=== PATIENT | female | born 1935 | race Asian ===

== ENCOUNTER 2016-08-13 19:12 | Emergency (ER) | payer MEDICARE, OTHER ==
[~2016-08-13] VITALS: Ht 157.5 cm; Wt 61.4 kg
[2016-08-13] MEDS ORDERED: ASCO500 PO (19:22)
[2016-08-13] MEDS ORDERED: ASPI-556 PO (19:22)
[2016-08-13] MEDS ORDERED: AMLO-512 PO (19:22)
[2016-08-13] MEDS ORDERED: CALC-746 PO (19:22)
[2016-08-13 20:38] VITALS: BP 132/76
== END 2016-08-13 22:20 | disposition home or self-care (01) ==
LOC: EMS 19:13
DX: L23.9 Allergic contact dermatitis, unspecified cause (principal); M25.561 Pain in right knee; I10 Essential (primary) hypertension; Z79.82 Long term (current) use of aspirin
CPT/HCPCS: 93971; 99284

== ENCOUNTER 2016-09-13 21:28 | Emergency (ER) | payer MEDICARE, OTHER ==
[~2016-09-13] VITALS: Ht 157.5 cm; Wt 56.5 kg
[~2016-09-13 21:28] MED LIST: AMLO-512 PO; ASCO500 PO; ASPI-556 PO; CALC-746 PO
[2016-09-13] MEDS ORDERED: DiphenhydrAMINE HCL 25 MG CAPSULE PO ONE (22:00)
[2016-09-13] MEDS ORDERED: FAMOTIDINE 20 MG TABLET PO ONE (22:00)
[2016-09-13 22:49] VITALS: BP 140/82
== END 2016-09-13 23:06 | disposition home or self-care (01) ==
LOC: EMS 21:30
DX: T78.40XA Allergy, unspecified, initial encounter (principal); L25.9 Unspecified contact dermatitis, unspecified cause; I10 Essential (primary) hypertension; X58.XXXA Exposure to other specified factors, initial encounter
CPT/HCPCS: 99283

== ENCOUNTER → 2016-11-02 | Outpatient (CLI) | payer MEDICARE, OTHER | END | disposition home or self-care (01) | LOC: RADPV 13:08 | PROVIDERS: ATTEND Family Medicine | DX: M47.816 Spondylosis without myelopathy or radiculopathy, lumbar region (principal); M51.36 Other intervertebral disc degeneration, lumbar region; M85.88 Other specified disorders of bone density and structure, other site; M41.86 Other forms of scoliosis, lumbar region; I70.0 Atherosclerosis of aorta; M17.11 Unilateral primary osteoarthritis, right knee; M25.461 Effusion, right knee; M19.042 Primary osteoarthritis, left hand; M19.041 Primary osteoarthritis, right hand; M81.0 Age-related osteoporosis without current pathological fracture; M25.842 Other specified joint disorders, left hand; M25.841 Other specified joint disorders, right hand; M21.942 Unspecified acquired deformity of hand, left hand; M21.941 Unspecified acquired deformity of hand, right hand | CPT/HCPCS: 72100 ==

== ENCOUNTER 2018-06-13 19:38 | Emergency (ER) | payer MEDICARE, OTHER ==
[~2018-06-13] VITALS: Ht 154.9 cm; Wt 57.3 kg
[~2018-06-13 19:38] MED LIST changes: -CALC-746 PO; +CALC-877 PO
[2018-06-13] MEDS ORDERED: ACETAMINOPHEN 500 MG TABLET PO ONE (22:00)
[2018-06-14 01:20] VITALS: BP 145/88
[2018-06-14] MEDS ORDERED: IBUPROFEN 600 MG TABLET PO ONE (01:45)
[2018-06-14] MEDS ORDERED: CEPHALEXIN MONOHYDRATE 500 MG CAPSULE PO ONE (01:45)
== END 2018-06-14 01:56 | disposition home or self-care (01) ==
LOC: EMS 19:39
DX: I83.92 Asymptomatic varicose veins of left lower extremity (principal); L02.416 Cutaneous abscess of left lower limb; L03.116 Cellulitis of left lower limb; M19.90 Unspecified osteoarthritis, unspecified site; I10 Essential (primary) hypertension; Z79.82 Long term (current) use of aspirin
CPT/HCPCS: 93970

== ENCOUNTER → 2018-11-28 | Outpatient (CLI) | payer MEDICARE, OTHER ==
[~2018-11-28] VITALS: Ht 154.9 cm; Wt 57.0 kg
[~2018-11-28] MED LIST changes: -AMLO-512 PO; +AMLO10TA7 PO; +LIDOCAINE 4% 50 ML SOLUTION TP ONE
[2018-11-28 09:36] VITALS: BP 148/90
== END | disposition home or self-care (01) ==
LOC: HBOWC 08:54
PROVIDERS: ATTEND Emergency Medicine
DX: L97.322 Non-pressure chronic ulcer of left ankle with fat layer exposed (principal); I87.8 Other specified disorders of veins; I10 Essential (primary) hypertension; M19.90 Unspecified osteoarthritis, unspecified site; Z79.82 Long term (current) use of aspirin
CPT/HCPCS: 11042; 11045; 87070; 87205

== ENCOUNTER → 2018-12-04 | Outpatient (CLI) | payer MEDICARE, OTHER ==
[~2018-12-04] MED LIST changes: -LIDOCAINE 4% 50 ML SOLUTION TP ONE
[2018-12-04 09:16] VITALS: BP 164/100
== END | disposition home or self-care (01) ==
LOC: HBOWC 08:59
PROVIDERS: ATTEND Surgery Plastic and Reconstructive Surgery
DX: L97.322 Non-pressure chronic ulcer of left ankle with fat layer exposed (principal); I87.8 Other specified disorders of veins; I10 Essential (primary) hypertension; M19.90 Unspecified osteoarthritis, unspecified site; Z79.82 Long term (current) use of aspirin
CPT/HCPCS: 11042

== ENCOUNTER → 2018-12-11 | Outpatient (CLI) | payer MEDICARE, OTHER ==
[2018-12-11 09:10] VITALS: BP 170/80
== END | disposition home or self-care (01) ==
LOC: HBOWC 08:55
PROVIDERS: ATTEND Surgery Plastic and Reconstructive Surgery
DX: L97.321 Non-pressure chronic ulcer of left ankle limited to breakdown of skin (principal); I87.8 Other specified disorders of veins; I10 Essential (primary) hypertension; M19.90 Unspecified osteoarthritis, unspecified site; M21.962 Unspecified acquired deformity of left lower leg; Z79.82 Long term (current) use of aspirin

== ENCOUNTER → 2018-12-26 | Outpatient (CLI) | payer MEDICARE, OTHER ==
[2018-12-26 10:12] VITALS: BP 123/82
== END | disposition home or self-care (01) ==
LOC: HBOWC 09:28
PROVIDERS: ATTEND Emergency Medicine
DX: L97.321 Non-pressure chronic ulcer of left ankle limited to breakdown of skin (principal); I87.8 Other specified disorders of veins; I10 Essential (primary) hypertension; M19.90 Unspecified osteoarthritis, unspecified site; M21.962 Unspecified acquired deformity of left lower leg; Z79.82 Long term (current) use of aspirin

== ENCOUNTER → 2019-02-13 | Outpatient (CLI) | payer MEDICARE, OTHER | END | disposition home or self-care (01) | LOC: HBOWC 10:22 | PROVIDERS: ATTEND Emergency Medicine | DX: L97.328 Non-pressure chronic ulcer of left ankle with other specified severity (principal); I87.8 Other specified disorders of veins; I10 Essential (primary) hypertension; M19.90 Unspecified osteoarthritis, unspecified site; M21.962 Unspecified acquired deformity of left lower leg; Z79.82 Long term (current) use of aspirin ==

== ENCOUNTER → 2020-09-02 | Outpatient (CLI) | payer MEDICARE, OTHER ==
[~2020-09-02] MED LIST changes: +AMLO-258 PO; -AMLO10TA7 PO; +LIDOCAINE 4% 50 ML SOLUTION TP ONE
== END | disposition home or self-care (01) ==
LOC: HBOWC 09:59
PROVIDERS: ATTEND Emergency Medicine
DX: E11.622 Type 2 diabetes mellitus with other skin ulcer (principal); L97.821 Non-pressure chronic ulcer of other part of left lower leg limited to breakdown of skin; B35.3 Tinea pedis; I10 Essential (primary) hypertension; M19.90 Unspecified osteoarthritis, unspecified site; M10.9 Gout, unspecified; M21.6X2 Other acquired deformities of left foot; Z79.82 Long term (current) use of aspirin; Z98.49 Cataract extraction status, unspecified eye; Z96.659 Presence of unspecified artificial knee joint
CPT/HCPCS: 97597; G0463; 99205

== ENCOUNTER → 2020-09-09 | Outpatient (CLI) | payer MEDICARE, OTHER ==
[~2020-09-09] MED LIST changes: +GENTAMICIN SULFATE 0.1% 15 GM OINTMENT TP ONE; -LIDOCAINE 4% 50 ML SOLUTION TP ONE
== END | disposition home or self-care (01) ==
LOC: HBOWC 09:35
PROVIDERS: ATTEND Emergency Medicine
DX: E11.622 Type 2 diabetes mellitus with other skin ulcer (principal); L97.821 Non-pressure chronic ulcer of other part of left lower leg limited to breakdown of skin; B35.3 Tinea pedis; I10 Essential (primary) hypertension; M19.90 Unspecified osteoarthritis, unspecified site; M10.9 Gout, unspecified; M21.6X2 Other acquired deformities of left foot; Z79.82 Long term (current) use of aspirin; Z98.49 Cataract extraction status, unspecified eye; Z96.659 Presence of unspecified artificial knee joint
CPT/HCPCS: 11042; 87070; 87077; 87186; G0463

== ENCOUNTER → 2020-09-18 | Outpatient (CLI) | payer MEDICARE, OTHER ==
[~2020-09-18] MED LIST changes: -GENTAMICIN SULFATE 0.1% 15 GM OINTMENT TP ONE
== END | disposition home or self-care (01) ==
LOC: HBOWC 10:02
PROVIDERS: ATTEND Nurse Practitioner Adult Health
DX: E11.622 Type 2 diabetes mellitus with other skin ulcer (principal); L97.821 Non-pressure chronic ulcer of other part of left lower leg limited to breakdown of skin; L03.116 Cellulitis of left lower limb; B35.3 Tinea pedis; B35.1 Tinea unguium; M1A.00X0 Idiopathic chronic gout, unspecified site, without tophus (tophi); I87.2 Venous insufficiency (chronic) (peripheral); I10 Essential (primary) hypertension; M19.90 Unspecified osteoarthritis, unspecified site; M21.6X2 Other acquired deformities of left foot; Z79.82 Long term (current) use of aspirin; Z98.49 Cataract extraction status, unspecified eye; Z96.659 Presence of unspecified artificial knee joint
CPT/HCPCS: G0463; Z7500

== ENCOUNTER → 2020-09-25 | Outpatient (CLI) | payer MEDICARE, OTHER | END | disposition home or self-care (01) | LOC: HBOWC 10:43 | PROVIDERS: ATTEND Nurse Practitioner Adult Health | DX: E11.622 Type 2 diabetes mellitus with other skin ulcer (principal); L97.821 Non-pressure chronic ulcer of other part of left lower leg limited to breakdown of skin; I87.2 Venous insufficiency (chronic) (peripheral); L03.116 Cellulitis of left lower limb; M1A.00X0 Idiopathic chronic gout, unspecified site, without tophus (tophi); M19.90 Unspecified osteoarthritis, unspecified site; B35.3 Tinea pedis; B35.2 Tinea manuum; I10 Essential (primary) hypertension; M21.962 Unspecified acquired deformity of left lower leg; Z79.82 Long term (current) use of aspirin; Z79.899 Other long term (current) drug therapy; Z98.49 Cataract extraction status, unspecified eye; Z96.659 Presence of unspecified artificial knee joint | CPT/HCPCS: G0463; Z7500 ==

== ENCOUNTER → 2020-10-02 | Outpatient (CLI) | payer MEDICARE, OTHER | END | disposition home or self-care (01) | LOC: HBOWC 09:52 | PROVIDERS: ATTEND Nurse Practitioner Adult Health | DX: E11.622 Type 2 diabetes mellitus with other skin ulcer (principal); L97.821 Non-pressure chronic ulcer of other part of left lower leg limited to breakdown of skin; I87.2 Venous insufficiency (chronic) (peripheral); L03.116 Cellulitis of left lower limb; B35.3 Tinea pedis; B35.2 Tinea manuum; M21.962 Unspecified acquired deformity of left lower leg; I10 Essential (primary) hypertension; M19.90 Unspecified osteoarthritis, unspecified site; M1A.00X0 Idiopathic chronic gout, unspecified site, without tophus (tophi); Z79.82 Long term (current) use of aspirin; Z79.899 Other long term (current) drug therapy; Z98.49 Cataract extraction status, unspecified eye; Z96.659 Presence of unspecified artificial knee joint | CPT/HCPCS: G0463; Z7500 ==

== ENCOUNTER → 2020-10-09 | Outpatient (CLI) | payer MEDICARE, OTHER | END | disposition home or self-care (01) | LOC: HBOWC 10:18 | PROVIDERS: ATTEND Nurse Practitioner Adult Health | DX: E11.622 Type 2 diabetes mellitus with other skin ulcer (principal); L97.821 Non-pressure chronic ulcer of other part of left lower leg limited to breakdown of skin; L03.116 Cellulitis of left lower limb; I87.2 Venous insufficiency (chronic) (peripheral); B35.3 Tinea pedis; B35.1 Tinea unguium; B35.2 Tinea manuum; M21.962 Unspecified acquired deformity of left lower leg; I10 Essential (primary) hypertension; M19.90 Unspecified osteoarthritis, unspecified site; M1A.00X0 Idiopathic chronic gout, unspecified site, without tophus (tophi); Z79.82 Long term (current) use of aspirin; Z79.899 Other long term (current) drug therapy; Z98.49 Cataract extraction status, unspecified eye; Z96.659 Presence of unspecified artificial knee joint | CPT/HCPCS: G0463 ==

== ENCOUNTER → 2020-10-16 | Outpatient (CLI) | payer MEDICARE, OTHER ==
[~2020-10-16] MED LIST changes: +GENTAMICIN SULFATE 0.1% 15 GM OINTMENT TP ONE
== END | disposition home or self-care (01) ==
LOC: HBOWC 09:25
PROVIDERS: ATTEND Nurse Practitioner Adult Health
DX: E11.622 Type 2 diabetes mellitus with other skin ulcer (principal); L97.821 Non-pressure chronic ulcer of other part of left lower leg limited to breakdown of skin; L03.116 Cellulitis of left lower limb; I87.2 Venous insufficiency (chronic) (peripheral); M1A.00X0 Idiopathic chronic gout, unspecified site, without tophus (tophi); B35.3 Tinea pedis; B35.2 Tinea manuum; M19.90 Unspecified osteoarthritis, unspecified site; I10 Essential (primary) hypertension; Z79.82 Long term (current) use of aspirin; Z98.49 Cataract extraction status, unspecified eye; Z96.659 Presence of unspecified artificial knee joint
CPT/HCPCS: G0463

== ENCOUNTER → 2020-10-21 | Outpatient (CLI) | payer MEDICARE, OTHER ==
[~2020-10-21] MED LIST changes: +LIDOCAINE 4% 50 ML SOLUTION TP ONE; +NYSTATIN 15 GM CREAM [WOUND CENTER ONLY] TP ONE
== END | disposition home or self-care (01) ==
LOC: HBOWC 09:08
PROVIDERS: ATTEND Emergency Medicine
DX: E11.621 Type 2 diabetes mellitus with foot ulcer (principal); L97.522 Non-pressure chronic ulcer of other part of left foot with fat layer exposed; E11.622 Type 2 diabetes mellitus with other skin ulcer; L97.821 Non-pressure chronic ulcer of other part of left lower leg limited to breakdown of skin; B35.3 Tinea pedis; B35.2 Tinea manuum; I87.2 Venous insufficiency (chronic) (peripheral); L03.116 Cellulitis of left lower limb; M21.962 Unspecified acquired deformity of left lower leg; I10 Essential (primary) hypertension; M19.90 Unspecified osteoarthritis, unspecified site; L84 Corns and callosities; M1A.00X0 Idiopathic chronic gout, unspecified site, without tophus (tophi); Z98.49 Cataract extraction status, unspecified eye; Z96.659 Presence of unspecified artificial knee joint
CPT/HCPCS: 11042; 87070; 87077; 87186; 87205; G0463

== ENCOUNTER → 2020-10-31 | Outpatient (CLI) | payer MEDICARE, OTHER ==
[~2020-10-31] MED LIST changes: -GENTAMICIN SULFATE 0.1% 15 GM OINTMENT TP ONE; -LIDOCAINE 4% 50 ML SOLUTION TP ONE; -NYSTATIN 15 GM CREAM [WOUND CENTER ONLY] TP ONE
== END | disposition home or self-care (01) ==
LOC: HBOWC 10:53
PROVIDERS: ATTEND Podiatrist
DX: E11.622 Type 2 diabetes mellitus with other skin ulcer (principal); L97.821 Non-pressure chronic ulcer of other part of left lower leg limited to breakdown of skin; E11.621 Type 2 diabetes mellitus with foot ulcer; L97.521 Non-pressure chronic ulcer of other part of left foot limited to breakdown of skin; L03.116 Cellulitis of left lower limb; B35.3 Tinea pedis; B35.1 Tinea unguium; B35.2 Tinea manuum; I87.2 Venous insufficiency (chronic) (peripheral); M21.962 Unspecified acquired deformity of left lower leg; M19.90 Unspecified osteoarthritis, unspecified site; I10 Essential (primary) hypertension; M1A.00X0 Idiopathic chronic gout, unspecified site, without tophus (tophi); Z79.82 Long term (current) use of aspirin; Z79.899 Other long term (current) drug therapy; Z98.49 Cataract extraction status, unspecified eye; Z96.659 Presence of unspecified artificial knee joint
CPT/HCPCS: 97597; G0463

== ENCOUNTER → 2020-11-11 | Outpatient (CLI) | payer MEDICARE, OTHER | END | disposition home or self-care (01) | LOC: HBOWC 09:46 | PROVIDERS: ATTEND Emergency Medicine | DX: E11.621 Type 2 diabetes mellitus with foot ulcer (principal); L97.522 Non-pressure chronic ulcer of other part of left foot with fat layer exposed; E11.622 Type 2 diabetes mellitus with other skin ulcer; L97.821 Non-pressure chronic ulcer of other part of left lower leg limited to breakdown of skin; L03.116 Cellulitis of left lower limb; B35.3 Tinea pedis; B35.1 Tinea unguium; B35.2 Tinea manuum; I87.2 Venous insufficiency (chronic) (peripheral); M21.962 Unspecified acquired deformity of left lower leg; M19.90 Unspecified osteoarthritis, unspecified site; L84 Corns and callosities; I10 Essential (primary) hypertension; M1A.00X0 Idiopathic chronic gout, unspecified site, without tophus (tophi); Z79.82 Long term (current) use of aspirin; Z79.899 Other long term (current) drug therapy; Z98.49 Cataract extraction status, unspecified eye; Z96.659 Presence of unspecified artificial knee joint | CPT/HCPCS: 11042; G0463 ==

== ENCOUNTER → 2020-11-18 | Outpatient (CLI) | payer MEDICARE, OTHER ==
[~2020-11-18] MED LIST changes: +GENTAMICIN SULFATE 0.1% 15 GM OINTMENT TP ONE; +LIDOCAINE 4% 50 ML SOLUTION TP ONE
== END | disposition home or self-care (01) ==
LOC: HBOWC 09:37
PROVIDERS: ATTEND Emergency Medicine
DX: E11.622 Type 2 diabetes mellitus with other skin ulcer (principal); L97.821 Non-pressure chronic ulcer of other part of left lower leg limited to breakdown of skin; E11.621 Type 2 diabetes mellitus with foot ulcer; L97.522 Non-pressure chronic ulcer of other part of left foot with fat layer exposed; L97.511 Non-pressure chronic ulcer of other part of right foot limited to breakdown of skin; S80.822D Blister (nonthermal), left lower leg, subsequent encounter; S90.425D Blister (nonthermal), left lesser toe(s), subsequent encounter; I87.2 Venous insufficiency (chronic) (peripheral); E11.51 Type 2 diabetes mellitus with diabetic peripheral angiopathy without gangrene; B35.3 Tinea pedis; M21.6X2 Other acquired deformities of left foot; M19.90 Unspecified osteoarthritis, unspecified site; I10 Essential (primary) hypertension; M1A.00X0 Idiopathic chronic gout, unspecified site, without tophus (tophi); M17.30 Unilateral post-traumatic osteoarthritis, unspecified knee; Z79.82 Long term (current) use of aspirin; Z79.899 Other long term (current) drug therapy; Z98.49 Cataract extraction status, unspecified eye; X58.XXXD Exposure to other specified factors, subsequent encounter
CPT/HCPCS: G0463

== ENCOUNTER → 2020-11-25 | Outpatient (CLI) | payer MEDICARE, OTHER ==
[~2020-11-25] MED LIST changes: +NYSTATIN 30 GM OINTMENT TP ONE
== END | disposition home or self-care (01) ==
LOC: HBOWC 10:13
PROVIDERS: ATTEND Emergency Medicine
DX: E11.621 Type 2 diabetes mellitus with foot ulcer (principal); L97.521 Non-pressure chronic ulcer of other part of left foot limited to breakdown of skin; E11.622 Type 2 diabetes mellitus with other skin ulcer; L97.821 Non-pressure chronic ulcer of other part of left lower leg limited to breakdown of skin; L03.116 Cellulitis of left lower limb; S80.822D Blister (nonthermal), left lower leg, subsequent encounter; S90.425D Blister (nonthermal), left lesser toe(s), subsequent encounter; I87.2 Venous insufficiency (chronic) (peripheral); E11.51 Type 2 diabetes mellitus with diabetic peripheral angiopathy without gangrene; E11.36 Type 2 diabetes mellitus with diabetic cataract; H26.9 Unspecified cataract; B35.3 Tinea pedis; B35.2 Tinea manuum; I10 Essential (primary) hypertension; M19.90 Unspecified osteoarthritis, unspecified site; L84 Corns and callosities; M1A.00X0 Idiopathic chronic gout, unspecified site, without tophus (tophi); M21.6X2 Other acquired deformities of left foot; Z79.82 Long term (current) use of aspirin; Z79.899 Other long term (current) drug therapy; Z98.49 Cataract extraction status, unspecified eye; Z96.659 Presence of unspecified artificial knee joint; X58.XXXD Exposure to other specified factors, subsequent encounter
CPT/HCPCS: 97597; G0463

== ENCOUNTER → 2020-12-09 | Outpatient (CLI) | payer MEDICARE, OTHER ==
[~2020-12-09] MED LIST changes: -NYSTATIN 30 GM OINTMENT TP ONE
== END | disposition home or self-care (01) ==
LOC: HBOWC 09:03
PROVIDERS: ATTEND Emergency Medicine
DX: E11.622 Type 2 diabetes mellitus with other skin ulcer (principal); L97.821 Non-pressure chronic ulcer of other part of left lower leg limited to breakdown of skin; E11.621 Type 2 diabetes mellitus with foot ulcer; L97.522 Non-pressure chronic ulcer of other part of left foot with fat layer exposed; L03.116 Cellulitis of left lower limb; B35.3 Tinea pedis; B35.2 Tinea manuum; I87.2 Venous insufficiency (chronic) (peripheral); M21.962 Unspecified acquired deformity of left lower leg; M19.90 Unspecified osteoarthritis, unspecified site; L84 Corns and callosities; I10 Essential (primary) hypertension; M1A.00X0 Idiopathic chronic gout, unspecified site, without tophus (tophi); Z79.82 Long term (current) use of aspirin; Z79.899 Other long term (current) drug therapy; Z98.49 Cataract extraction status, unspecified eye; Z96.659 Presence of unspecified artificial knee joint
CPT/HCPCS: 11042; 11045; 87070; 87077; 87186; 87205; G0463

== ENCOUNTER → 2020-12-16 | Outpatient (CLI) | payer MEDICARE, OTHER ==
[~2020-12-16] MED LIST changes: -GENTAMICIN SULFATE 0.1% 15 GM OINTMENT TP ONE; +NYSTATIN 30 GM OINTMENT TP ONE
== END | disposition home or self-care (01) ==
LOC: HBOWC 08:56
PROVIDERS: ATTEND Emergency Medicine
DX: E11.622 Type 2 diabetes mellitus with other skin ulcer (principal); L97.822 Non-pressure chronic ulcer of other part of left lower leg with fat layer exposed; E11.621 Type 2 diabetes mellitus with foot ulcer; L97.521 Non-pressure chronic ulcer of other part of left foot limited to breakdown of skin; I87.2 Venous insufficiency (chronic) (peripheral); B35.3 Tinea pedis; E11.51 Type 2 diabetes mellitus with diabetic peripheral angiopathy without gangrene; I10 Essential (primary) hypertension; M10.9 Gout, unspecified; M21.6X2 Other acquired deformities of left foot; M19.90 Unspecified osteoarthritis, unspecified site; M10.00 Idiopathic gout, unspecified site; Z96.659 Presence of unspecified artificial knee joint; Z98.49 Cataract extraction status, unspecified eye
CPT/HCPCS: 11042; 97597; 97598; G0463

== ENCOUNTER → 2020-12-23 | Outpatient (CLI) | payer MEDICARE, OTHER ==
[~2020-12-23] MED LIST changes: -LIDOCAINE 4% 50 ML SOLUTION TP ONE; -NYSTATIN 30 GM OINTMENT TP ONE
== END | disposition home or self-care (01) ==
LOC: HBOWC 08:50
PROVIDERS: ATTEND Emergency Medicine
DX: E11.621 Type 2 diabetes mellitus with foot ulcer (principal); L97.522 Non-pressure chronic ulcer of other part of left foot with fat layer exposed; S80.822D Blister (nonthermal), left lower leg, subsequent encounter; S90.425D Blister (nonthermal), left lesser toe(s), subsequent encounter; I87.2 Venous insufficiency (chronic) (peripheral); E11.51 Type 2 diabetes mellitus with diabetic peripheral angiopathy without gangrene; B35.3 Tinea pedis; I10 Essential (primary) hypertension; M19.90 Unspecified osteoarthritis, unspecified site; M10.00 Idiopathic gout, unspecified site; M21.6X2 Other acquired deformities of left foot; Z79.82 Long term (current) use of aspirin; Z79.899 Other long term (current) drug therapy; Z98.49 Cataract extraction status, unspecified eye; Z96.659 Presence of unspecified artificial knee joint; X58.XXXD Exposure to other specified factors, subsequent encounter
CPT/HCPCS: 11042; 11045

== ENCOUNTER → 2020-12-30 | Outpatient (CLI) | payer MEDICARE, OTHER | END | disposition home or self-care (01) | LOC: HBOWC 09:01 | PROVIDERS: ATTEND Emergency Medicine | DX: E11.621 Type 2 diabetes mellitus with foot ulcer (principal); L97.522 Non-pressure chronic ulcer of other part of left foot with fat layer exposed; L03.116 Cellulitis of left lower limb; B35.3 Tinea pedis; B35.2 Tinea manuum; I87.2 Venous insufficiency (chronic) (peripheral); E11.51 Type 2 diabetes mellitus with diabetic peripheral angiopathy without gangrene; I10 Essential (primary) hypertension; M19.90 Unspecified osteoarthritis, unspecified site; M1A.00X0 Idiopathic chronic gout, unspecified site, without tophus (tophi); M17.30 Unilateral post-traumatic osteoarthritis, unspecified knee; L84 Corns and callosities; M21.6X2 Other acquired deformities of left foot; Z79.82 Long term (current) use of aspirin; Z79.899 Other long term (current) drug therapy; Z98.49 Cataract extraction status, unspecified eye; Z96.659 Presence of unspecified artificial knee joint; X58.XXXD Exposure to other specified factors, subsequent encounter | CPT/HCPCS: 97597; G0463 ==

== ENCOUNTER → 2021-01-06 | Outpatient (CLI) | payer MEDICARE, OTHER | END | disposition home or self-care (01) | LOC: HBOWC 09:05 | PROVIDERS: ATTEND Emergency Medicine | DX: E11.621 Type 2 diabetes mellitus with foot ulcer (principal); L97.522 Non-pressure chronic ulcer of other part of left foot with fat layer exposed; L03.116 Cellulitis of left lower limb; I87.2 Venous insufficiency (chronic) (peripheral); B35.3 Tinea pedis; B35.2 Tinea manuum; E11.51 Type 2 diabetes mellitus with diabetic peripheral angiopathy without gangrene; I10 Essential (primary) hypertension; M19.90 Unspecified osteoarthritis, unspecified site; M1A.00X0 Idiopathic chronic gout, unspecified site, without tophus (tophi); M17.30 Unilateral post-traumatic osteoarthritis, unspecified knee; L84 Corns and callosities; M21.6X2 Other acquired deformities of left foot; Z79.82 Long term (current) use of aspirin; Z79.899 Other long term (current) drug therapy; Z98.49 Cataract extraction status, unspecified eye; Z96.659 Presence of unspecified artificial knee joint | CPT/HCPCS: 97597; 97598; G0463 ==

== ENCOUNTER → 2021-01-13 | Outpatient (CLI) | payer MEDICARE, OTHER | END | disposition home or self-care (01) | LOC: HBOWC 09:26 | PROVIDERS: ATTEND Emergency Medicine | DX: E11.621 Type 2 diabetes mellitus with foot ulcer (principal); L97.521 Non-pressure chronic ulcer of other part of left foot limited to breakdown of skin; L03.116 Cellulitis of left lower limb; I87.2 Venous insufficiency (chronic) (peripheral); B35.3 Tinea pedis; B35.2 Tinea manuum; E11.51 Type 2 diabetes mellitus with diabetic peripheral angiopathy without gangrene; I10 Essential (primary) hypertension; M19.90 Unspecified osteoarthritis, unspecified site; M1A.00X0 Idiopathic chronic gout, unspecified site, without tophus (tophi); M17.30 Unilateral post-traumatic osteoarthritis, unspecified knee; L84 Corns and callosities; M21.6X2 Other acquired deformities of left foot; Z79.82 Long term (current) use of aspirin; Z79.899 Other long term (current) drug therapy; Z98.49 Cataract extraction status, unspecified eye; Z96.659 Presence of unspecified artificial knee joint | CPT/HCPCS: G0463 ==

== ENCOUNTER → 2021-01-27 | Outpatient (CLI) | payer MEDICARE, OTHER | END | disposition home or self-care (01) | LOC: HBOWC 07:59 | PROVIDERS: ATTEND Emergency Medicine | DX: E11.621 Type 2 diabetes mellitus with foot ulcer (principal); L97.521 Non-pressure chronic ulcer of other part of left foot limited to breakdown of skin; S90.425D Blister (nonthermal), left lesser toe(s), subsequent encounter; S80.822D Blister (nonthermal), left lower leg, subsequent encounter; I87.2 Venous insufficiency (chronic) (peripheral); E11.51 Type 2 diabetes mellitus with diabetic peripheral angiopathy without gangrene; L03.116 Cellulitis of left lower limb; B35.1 Tinea unguium; M1A.00X0 Idiopathic chronic gout, unspecified site, without tophus (tophi); I10 Essential (primary) hypertension; M21.6X2 Other acquired deformities of left foot; M21.962 Unspecified acquired deformity of left lower leg; M19.90 Unspecified osteoarthritis, unspecified site; Z79.82 Long term (current) use of aspirin; Z79.899 Other long term (current) drug therapy; Z98.49 Cataract extraction status, unspecified eye; Z96.659 Presence of unspecified artificial knee joint; X58.XXXD Exposure to other specified factors, subsequent encounter | CPT/HCPCS: G0463; Z7500 ==